=== PATIENT | male | born 1995 | race Two or more races ===

== ENCOUNTER 2018-05-01 02:04 | Emergency (ER) | payer SELFPAY ==
[2018-05-01] MEDS ORDERED: LIDOCAINE 4% TRANSPARENT DRESSING 5 GM KIT TP ONE (02:18)
[2018-05-01] MEDS ORDERED: DIPH/PERTUSS(ACELL)/TETANUS VAC/PF 0.5 ML SYR (>=10YO) IM ONE (02:18)
[2018-05-01] MEDS ORDERED: HYDROMORPHONE HCL INJ/PF 2 MG/ML AMPULE IM PRN (02:18)
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
[2018-05-01] MEDS ORDERED: IBUPROFEN 600 MG TABLET PO ONE (07:10)
[2018-05-01 07:35] VITALS: BP 128/72
== END 2018-05-01 07:35 | disposition home or self-care (01) ==
LOC: ER 02:04
DX: S09.90XA Unspecified injury of head, initial encounter (principal); S59.912A Unspecified injury of left forearm, initial encounter; S59.911A Unspecified injury of right forearm, initial encounter; S01.01XA Laceration without foreign body of scalp, initial encounter; S01.81XA Laceration without foreign body of other part of head, initial encounter; Y00.XXXA Assault by blunt object, initial encounter; Z23 Encounter for immunization; F10.920 Alcohol use, unspecified with intoxication, uncomplicated
CPT/HCPCS: 99284; 96372; 90471; 73090; 70450; 72125; 90715; 12005; J1170; J3490